=== PATIENT | female | born 1940 | race Caucasian/White ===

== ENCOUNTER 2017-01-28 18:33 | Emergency (ER) | payer MEDICARE, MEDICAID ==
[~2017-01-28] VITALS: Ht 165.1 cm; Wt 78.0 kg
[~2017-01-28 18:33] MED LIST: ATORVASTATIN CA40 MG PO; BD ULTRA-FINE1 EAC2 SUBCUT; CHLOR-TRIMETON4 MG PO; CINNAMON500 MG PO; CRANBERRY500 M1 PO; GARLIC1000 MG PO; HALFPRIN81 MG PO; HUMALOG MI100 UNIT/1 SUBCUT; LANTUS SOL100 UNIT/1 SUBCUT; OSTEO BI-FLEX1 EAC1 PO; TRUEPLUS LANCE1 EAC1 SUBCUT; TURMERIC500 MG PO; [UNRECOGNIZED DRUG - OTHER] SUBCUT
[2017-02-10] MEDS ORDERED: COUMADIN2.5 MG PO (12:22)
[2017-02-10] MEDS ORDERED: COUMADIN5 MG PO (12:28)
[2017-02-10] MEDS ORDERED: DEPAKOTE SPRIN125 MG PO (12:29)
[2017-02-10] MEDS ORDERED: MAGNESIUM OXID400 MG PO (12:30)
[2017-02-10] MEDS ORDERED: LANTUS100 UNIT/1 SUBCUT (12:30)
[2017-02-10] MEDS ORDERED: NOVOLOG FL100 UNIT/1 SUBCUT (12:34)
[2017-02-10] MEDS ORDERED: NOVOLOG100 UNIT/2 SUBCUT (12:35)
[2017-02-10] MEDS ORDERED: TYLENOL650 MG RECTAL (12:37)
[2017-02-10] MEDS ORDERED: ACEPHEN325 MG RECTAL (12:39)
[2017-02-10] MEDS ORDERED: MECLIZINE HCL25 MG PO (13:14)
[2017-02-10] MEDS ORDERED: CLARITIN10 MG PO (13:15)
[2017-02-10] MEDS ORDERED: CELEXA20 MG PO (13:15)
[2017-02-10] MEDS ORDERED: NITROSTAT0.4 MG SL (13:15)
[2017-02-10] MEDS ORDERED: DULCOLAX10 MG RECTAL (13:15)
[2017-02-10] MEDS ORDERED: DULCOLAX5 MG PO (13:15)
[2017-02-10] MEDS ORDERED: FLEET ENEMA133 ML RECTAL (13:17)
[2017-02-10] MEDS ORDERED: MIRALAX17 GM PO (13:18)
[2017-02-10] MEDS ORDERED: MILK OF MAGNESI30 ML PO (13:18)
[2017-02-10] MEDS ORDERED: ADVAIR DIS14 PUFF/DI INH (13:20)
[2017-02-10] MEDS ORDERED: SENNA-TIME S1 TAB PO (13:20)
[2017-02-10] MEDS ORDERED: LIORESAL10 MG PO (13:21)
[2017-02-10] MEDS ORDERED: ATROVENT0.5 MG/2.5 INH (13:21)
[2017-02-10] MEDS ORDERED: ZOCOR20 MG PO (13:22)
[2017-02-10] MEDS ORDERED: NEURONTIN100 MG PO (13:22)
[2017-02-10] MEDS ORDERED: PRINIVIL10 MG PO (13:22)
[2017-02-10] MEDS ORDERED: TYLENOL325 MG PO (13:24)
[2017-02-10] MEDS ORDERED: ONDANSETRON HCL4 MG PO (13:25)
[2017-02-10] MEDS ORDERED: MELATIN3 MG PO (13:25)
[2017-02-10] MEDS ORDERED: ASPIRIN81 MG PO (13:26)
[2017-02-10] MEDS ORDERED: ULTRAM50 MG PO (13:48)
== END 2017-01-28 21:38 | disposition short-term general hospital (02) ==
LOC: ER 18:33
DX: E86.0 Dehydration (principal); N39.0 Urinary tract infection, site not specified; R41.0 Disorientation, unspecified; I10 Essential (primary) hypertension; E11.9 Type 2 diabetes mellitus without complications; G62.9 Polyneuropathy, unspecified; Z88.0 Allergy status to penicillin; Z88.2 Allergy status to sulfonamides; Z91.040 Latex allergy status